=== PATIENT | female | born 1995 | race African-American/Black ===

== ENCOUNTER 2018-02-23 06:27 | Emergency (ER) | payer OTHER ==
[~2018-02-23] VITALS: Ht 177.8 cm; Wt 99.8 kg
[~2018-02-23 06:27] MED LIST: BIRTH CONTROL; HYDROCODON-ACE1 EAC7 PO; KEFLEX500 MG PO; NORCO 5-325 TA1 EACH PO; TRINATE TABLET1 TAB PO
[2018-02-23 07:01] LABS: ABSOLUTE EOSINOPHILS 0.1 thou/uL (0.0-0.7); ABSOLUTE LYMPHOCYTES 1.4 thou/uL (0.8-5.3); ABSOLUTE MONOCYTES 0.4 thou/uL (0.0-1.2); ABSOLUTE NEUTROPHILS 5.2 thou/uL (1.6-8.1); BASOPHILS 0.5 %; EOSINOPHILS 1.5 %; HEMATOCRIT 36.5 % (37.0-47.0); HEMOGLOBIN 11.9 gm/dL (12.0-15.0); MCH 29.3 pg (26.0-34.0); MCHC 32.6 g/dL (28.0-37.0); MCV 89.8 fL (80.0-100.0); MONOCYTES 5.1 %; MPV 7.7 fl. (7.2-11.1); NUCLEATED RBCS 0 /100WBC; PLATELET COUNT* 462 thou/uL (150-400); POLYS 72.9 %; RBC 4.06 mil/uL (4.20-5.00); RDW-CV 14.9 % (10.5-14.5); WBC 7.2 thou/uL (4.0-11.0)
[2018-02-23 07:07] LABS: CALCIUM 9.2 mg/dL (8.5-10.1); CREATININE 0.8 mg/dL (0.6-1.3); POTASSIUM 3.6 mmol/L (3.5-5.1)
[2018-02-23 07:14] LABS: ALBUMIN 3.4 g/dL (3.4-5.0); TOTAL BILIRUBIN 0.3 mg/dL (<0.1-1.0)
[2018-02-23 09:28] LABS: URINE BILIRUBIN NEGATIVE (Negative); URINE BLOOD 3+ (Negative); URINE CLARITY CLEAR; URINE COLOR YELLOW; URINE GLUCOSE-RANDOM NEGATIVE (Negative); URINE KETONES TRACE (Negative); URINE LEUKOCYTES-REFLEX TRACE (Negative); URINE NITRITE-REFLEX NEGATIVE (Negative); URINE PROTEIN 1+ (Negative); URINE SPECIFIC GRAVITY 1.015 (1.005-1.030); URINE UROBILINOGEN 0.2 E.U./dl (0.2-1.0)
[2018-02-23 09:35] LABS: CASTS None Seen /LPF (None Seen); CRYSTALS None Seen /LPF (None Seen); SQUAMOUS 4-10 Moderate /LPF (0-3)
[2018-02-23] MEDS ORDERED: KEFLEX500 M1 PO (09:35)
[2018-02-23 09:36] LABS: BACTERIA-REFLEX 1-9 Few /HPF (None Seen); MUCUS 4-6 Moderate strn/LPF (None Seen); URINE RBC >20 Many /HPF (0-2); URINE WBC-REFLEX 0-5 Rare /HPF (0-5)
[2018-02-23 10:02] VITALS: BP 117/67
== END 2018-02-23 10:03 | disposition home or self-care (01) ==
LOC: M.ERS 06:27
PROVIDERS: Personal Emergency Response Attendant
DX: O03.4 Incomplete spontaneous abortion without complication (principal)

== ENCOUNTER 2018-04-29 22:44 | Emergency (ER) | payer OTHER ==
[~2018-04-29] VITALS: Ht 177.8 cm; Wt 81.7 kg
[~2018-04-29 22:44] MED LIST changes: +KEFLEX500 M1 PO
[2018-04-30] MEDS ORDERED: ZPAK PO (00:13)
[2018-04-30] MEDS ORDERED: MEDROLDOSEPACK PO (00:13)
[2018-04-30] MEDS ORDERED: IBU800 MG PO (00:14)
[2018-04-30 00:24] VITALS: BP 135/85
== END 2018-04-30 00:26 | disposition home or self-care (01) ==
LOC: M.ERS 22:44
DX: J03.80 Acute tonsillitis due to other specified organisms (principal); B96.89 Other specified bacterial agents as the cause of diseases classified elsewhere

== ENCOUNTER 2019-01-24 19:29 | Emergency (ER) | payer OTHER ==
[~2019-01-24] VITALS: Ht 180.3 cm; Wt 81.7 kg
[~2019-01-24 19:29] MED LIST changes: +IBU800 MG PO; +MEDROLDOSEPACK PO; +ZPAK PO
[2019-01-24] MEDS ORDERED: [UNRECOGNIZED DRUG - OTHER] (19:45)
[2019-01-24] MEDS ORDERED: FLAGYL500 M1 PO ×3 (21:22→21:25)
[2019-01-24 21:38] LABS: URINE BILIRUBIN NEGATIVE (Negative); URINE BLOOD 2+ (Negative); URINE CLARITY CLEAR; URINE COLOR YELLOW; URINE GLUCOSE-RANDOM NEGATIVE (Negative); URINE KETONES NEGATIVE (Negative); URINE LEUKOCYTES-REFLEX NEGATIVE (Negative); URINE NITRITE-REFLEX NEGATIVE (Negative); URINE PROTEIN 1+ (Negative); URINE SPECIFIC GRAVITY 1.025 (1.005-1.030); URINE UROBILINOGEN 0.2 E.U./dl (0.2-1.0)
[2019-01-24 21:48] LABS: BACTERIA-REFLEX >30 Many /HPF (None Seen); CASTS None Seen /LPF (None Seen); CRYSTALS None Seen /LPF (None Seen); MUCUS >6 Heavy strn/LPF (None Seen); SQUAMOUS 0-3 Few /LPF (0-3); URINE WBC-REFLEX None Seen /HPF (0-5)
[2019-01-24 21:58] VITALS: BP 131/91
== END 2019-01-24 22:00 | disposition home or self-care (01) ==
LOC: M.ERS 19:29
PROVIDERS: Physician Assistant
DX: N72 Inflammatory disease of cervix uteri (principal); N76.0 Acute vaginitis

== ENCOUNTER 2021-05-10 11:40 | Emergency (ER) | payer OTHER ==
[~2021-05-10] VITALS: Ht 177.8 cm; Wt 88.0 kg
[~2021-05-10 11:40] MED LIST changes: +FLAGYL500 M1 PO; +[UNRECOGNIZED DRUG - OTHER]
[2021-05-10 12:02] LABS: URINE BILIRUBIN NEGATIVE (Negative); URINE BLOOD NEGATIVE (Negative); URINE CLARITY CLEAR; URINE COLOR YELLOW; URINE GLUCOSE-RANDOM NEGATIVE (Negative); URINE KETONES NEGATIVE (Negative); URINE LEUKOCYTES-REFLEX NEGATIVE (Negative); URINE NITRITE-REFLEX NEGATIVE (Negative); URINE PROTEIN NEGATIVE (Negative); URINE SPECIFIC GRAVITY 1.015 (1.005-1.030); URINE UROBILINOGEN 0.2 E.U./dl (0.2-1.0)
[2021-05-10 12:13] LABS: ABSOLUTE BASOPHILS 0.1 thou/uL (0.0-0.2); ABSOLUTE EOSINOPHILS 0.1 thou/uL (0.0-0.7); ABSOLUTE MONOCYTES 0.5 thou/uL (0.0-1.2); ABSOLUTE NEUTROPHILS 7.5 thou/uL (1.6-8.1); BASOPHILS 0.7 %; HEMATOCRIT 34.6 % (37.0-47.0); HEMOGLOBIN 11.5 gm/dL (12.0-15.0); LYMPHOCYTES 19.8 %; MCH 28.2 pg (26.0-34.0); MCHC 33.3 g/dL (28.0-37.0); MCV 84.7 fL (80.0-100.0); MPV 7.5 fl. (7.2-11.1); NUCLEATED RBCS 0 /100WBC; PLATELET COUNT* 407 thou/uL (150-400); POLYS 73.5 %; RBC 4.08 mil/uL (4.20-5.00); RDW-CV 15.9 % (10.5-14.5); WBC 10.2 thou/uL (4.0-11.0)
[2021-05-10 12:21] LABS: CALCIUM 8.3 mg/dL (8.5-10.1); CREATININE 0.7 mg/dL (0.6-1.3); POTASSIUM 3.6 mmol/L (3.5-5.1)
[2021-05-10 12:26] LABS: ALBUMIN 3.5 g/dL (3.4-5.0); TOTAL BILIRUBIN 0.3 mg/dL (<0.1-1.0); TOTAL PROTEIN 7.5 g/dL (6.4-8.2)
[2021-05-10] MEDS ORDERED: DICLEGIS DR 101 EACH PO (14:12)
[2021-05-10 14:34] VITALS: BP 132/78
== END 2021-05-10 14:35 | disposition home or self-care (01) ==
LOC: M.ERS 11:40
PROVIDERS: Physician Assistant
DX: O20.0 Threatened abortion (principal); O44.01 Complete placenta previa NOS or without hemorrhage, first trimester

== ENCOUNTER 2021-08-28 09:33 | Emergency (ER) | payer OTHER ==
[~2021-08-28] VITALS: Ht 177.8 cm; Wt 86.2 kg
[~2021-08-28 09:33] MED LIST changes: +DICLEGIS DR 101 EACH PO
[2021-08-28] MEDS ORDERED: MEDROLDOSEPACK PO (10:41)
[2021-08-28] MEDS ORDERED: HYDROCORTISONE3011 TOP (10:41)
[2021-08-28 10:48] VITALS: BP 135/92
== END 2021-08-28 10:49 | disposition home or self-care (01) ==
LOC: M.ERS 09:33
DX: L50.9 Urticaria, unspecified (principal)